=== PATIENT | male | born 1935 | race Caucasian/White ===

== ENCOUNTER 2017-03-31 02:30 | Day surgery (SDC) | payer MEDICARE, OTHER ==
[~2017-03-31 02:30] MED LIST: ASPI81CH PO; ATOR80 PO; BISA10S PR; CIPR500 PO; CLOP75; CLOP75 PO; CYAN1000I IM; CYCL10 PO; GLUCHON PO; LAVAP17G PO; MECL25 PO; METO10 PO; METO25ER PO; NITR.4SL SL; Nitrostat0.4 MG SL; TICA90TA PO; [UNRECOGNIZED DRUG - OTHER]; [UNRECOGNIZED DRUG - OTHER] PO
== END 2017-03-31 12:23 | disposition home or self-care (01) ==
LOC: RAD 02:30
PROVIDERS: Radiology Diagnostic Radiology
PROC: B01B1ZZ Fluoroscopy of Spinal Cord using Low Osmolar Contrast (ICD-10-PCS; principal; 2017-03-31 11:00)
DX: M50.11 Cervical disc disorder with radiculopathy, high cervical region (principal); M48.02 Spinal stenosis, cervical region; Z95.0 Presence of cardiac pacemaker
CPT/HCPCS: 62302; 72126; Q9966

== ENCOUNTER → 2017-05-03 | Outpatient (CLI) | payer MEDICARE, OTHER ==
[2017-05-04 14:20] LABS: Stool Occult Bld Immuno 1 Negative (NEGATIVE); Stool Occult Bld Immuno 2 Negative (NEGATIVE)
== END | disposition home or self-care (01) ==
LOC: LAB SHORT 14:09 → LAB 14:09
PROVIDERS: Internal Medicine Gastroenterology
DX: K59.00 Constipation, unspecified (principal); Z86.010 Personal history of colon polyps
CPT/HCPCS: G0328

== ENCOUNTER → 2017-08-31 | Outpatient (CLI) | payer MEDICARE, OTHER | END | disposition home or self-care (01) | LOC: LAB SHORT 12:44 → PLD 12:44 | DX: D48.5 Neoplasm of uncertain behavior of skin (principal) | CPT/HCPCS: 88305 ==

== ENCOUNTER → 2018-03-02 | Outpatient (CLI) | payer MEDICARE, OTHER | END | disposition home or self-care (01) | LOC: PLD 10:37 → LAB SHORT 10:37 | DX: D48.5 Neoplasm of uncertain behavior of skin (principal) | CPT/HCPCS: 88305 ==

== ENCOUNTER → 2018-06-30 | Outpatient (CLI) | payer MEDICARE, OTHER ==
[2018-06-30 11:12] LABS: BASOPHILS ABSOLUTE AUTO 0.02 K/mm3 (0.00-0.23); BASOPHILS PERCENT AUTO 0 % (0-2); EOSINOPHILS ABSOLUTE AUTO 0.06 K/mm3 (0.00-0.68); EOSINOPHILS PERCENT AUTO 1 % (0-6); Hematocrit 42.3 % (37.0-53.0); Hemoglobin 14.4 g/dL (13.5-17.5); IMMATURE GRAN ABSOLUTE AUTO 0.04 K/mm3 (0.00-0.10); IMMATURE GRAN PERCENT AUTO 1 % (0-1); LYMPHOCYTES ABSOLUTE AUTO 1.59 K/mm3 (0.84-5.20); LYMPHOCYTES PERCENT AUTO 19 % (21-46); MONOCYTES ABSOLUTE AUTO 0.48 K/mm3 (0.16-1.47); MONOCYTES PERCENT AUTO 6 % (4-13); Mean Corpuscular Volume 100 fL (80-100); Mean Platelet Volume 9.4 fL (9.1-12.4); NEUTROPHILS ABSOLUTE AUTO 6.05 K/mm3 (1.96-9.15); NEUTROPHILS PERCENT AUTO 74 % (41-73); Platelet Count 164 K/mm3 (150-400); RDW Coefficient Variation 12.5 % (11.7-14.2); RDW Standard Deviation 45.6 fL (35.1-46.3); Red Blood Cell Count 4.24 M/mm3 (4.30-5.90); White Blood Cell Count 8.24 K/mm3 (4.00-11.30)
[2018-06-30 11:22] LABS: Alanine Aminotransfer (ALT/SGP 14 U/L (12-78); Albumin, Blood 3.8 g/dL (3.4-5.0); Alk Phos 113 U/L (40-126); Anion Gap 5 mmol/L (6-16); Aspartate Aminotrans (AST/SGOT 27 U/L (12-37); Bilirubin, Total 0.8 mg/dL (0.1-1.0); Blood Urea Nitrogen 15 mg/dL (8-24); Bun/Creatinine Ratio 14.3 (12.0-20.0); CO2, Blood 31 mmol/L (21-32); Calcium, Blood 8.4 mg/dL (8.5-10.1); Chloride, Blood 101 mmol/L (98-108); Creatinine, Blood 1.05 mg/dL (0.60-1.20); Globulin, Blood 3.9 g/dL (2.2-4.0); Glomerular Filtration Rate >60 (60-); Glucose, Blood 131 mg/dL (70-99); Potassium, Blood 4.6 mmol/L (3.5-5.5); Sodium, Blood 137 mmol/L (136-145); Total Protein, Blood 7.7 g/dL (6.4-8.2)
== END | disposition home or self-care (01) ==
LOC: LAB EV 11:06 → LAB SHORT 11:06
PROVIDERS: Physician Assistant
DX: G20 Parkinson's disease (principal); R42 Dizziness and giddiness
CPT/HCPCS: 80053; 85025

== ENCOUNTER 2019-04-12 08:26 | Inpatient (IN) | payer MEDICARE, OTHER ==
[~2019-04-12] VITALS: Ht 180.3 cm; Wt 92.9 kg
[~2019-04-12 08:26] MED LIST changes: -ATOR80 PO; +ATORVASTATIN CA40 MG PO
[2019-04-12 09:14] LABS: BASOPHILS ABSOLUTE AUTO 0.02 K/mm3 (0.00-0.23); BASOPHILS PERCENT AUTO 0 % (0-2); EOSINOPHILS ABSOLUTE AUTO 0.01 K/mm3 (0.00-0.68); EOSINOPHILS PERCENT AUTO 0 % (0-6); Hematocrit 43.3 % (37.0-53.0); Hemoglobin 14.3 g/dL (13.5-17.5); IMMATURE GRAN ABSOLUTE AUTO 0.01 K/mm3 (0.00-0.10); IMMATURE GRAN PERCENT AUTO 0 % (0-1); LYMPHOCYTES ABSOLUTE AUTO 0.87 K/mm3 (0.84-5.20); LYMPHOCYTES PERCENT AUTO 17 % (21-46); MONOCYTES ABSOLUTE AUTO 0.59 K/mm3 (0.16-1.47); MONOCYTES PERCENT AUTO 11 % (4-13); Mean Corpuscular HGB 33.3 pg (26.0-34.0); Mean Corpuscular Volume 101 fL (80-100); Mean Platelet Volume 9.4 fL (9.1-12.4); NEUTROPHILS ABSOLUTE AUTO 3.78 K/mm3 (1.96-9.15); NEUTROPHILS PERCENT AUTO 72 % (41-73); Platelet Count 138 K/mm3 (150-400); RDW Coefficient Variation 12.4 % (11.7-14.2); RDW Standard Deviation 46.5 fL (35.1-46.3); White Blood Cell Count 5.28 K/mm3 (4.00-11.30)
[2019-04-12 09:39] LABS: Influenza A Negative (NEGATIVE); Influenza B Positive (NEGATIVE)
[2019-04-12 09:40] LABS: Alanine Aminotransfer (ALT/SGP 12 U/L (12-78); Albumin, Blood 3.5 g/dL (3.4-5.0); Albumin/Globulin Ratio 0.9 (0.8-1.8); Alk Phos 103 U/L (50-136); Anion Gap 8 mmol/L (6-16); Aspartate Aminotrans (AST/SGOT 65 U/L (12-37); Bilirubin, Total 0.5 mg/dL (0.1-1.0); Blood Urea Nitrogen 17 mg/dL (8-24); Bun/Creatinine Ratio 18.1 (12.0-20.0); CO2, Blood 25 mmol/L (21-32); Calcium, Blood 8.4 mg/dL (8.5-10.1); Chloride, Blood 105 mmol/L (98-108); Creatinine, Blood 0.94 mg/dL (0.60-1.20); Globulin, Blood 3.8 g/dL (2.2-4.0); Glomerular Filtration Rate >60 (60-); Glucose, Blood 115 mg/dL (70-99); Sodium, Blood 138 mmol/L (136-145); Total Protein, Blood 7.3 g/dL (6.4-8.2); Troponin I 0.047 ng/mL (0.000-0.040)
[2019-04-12 11:18] LABS: Source, Urine Clean Catch
[2019-04-12 11:29] LABS: Bilirubin, Urine Neg (Neg); Blood, Urine 1+ (Neg); Glucose Qualitative, Urine Neg (Neg); Ketones, Urine 2+ (Neg); Leukocyte Esterase, Urine Neg (Neg); Nitrite, Urine Neg (Neg); Protein, Urine 2+ (Neg); Urobilinogen, Urine NORM (Normal)
[2019-04-12 11:37] LABS: Appearance, Urine Clear (Clear); Color, Urine Yellow (P-Yellow)
[2019-04-12 11:38] LABS: White Blood Cells, Urine 0-2 /hpf (0-5)
[2019-04-12 11:41] LABS: Bacteria Few /hpf; Squamous Epithelial Cells Not Seen /hpf (Few)
[2019-04-12] MEDS ORDERED: Carbidopa-Levo1 EACH PO (12:40)
[2019-04-12] MEDS ORDERED: Sinemet 25-1001 EACH PO (12:41)
[2019-04-12] MEDS ORDERED: MELA3 PO (12:42)
[2019-04-13 05:14] LABS: BASOPHILS ABSOLUTE AUTO 0.01 K/mm3 (0.00-0.23); BASOPHILS PERCENT AUTO 0 % (0-2); EOSINOPHILS PERCENT AUTO 0 % (0-6); Hematocrit 43.3 % (37.0-53.0); Hemoglobin 14.7 g/dL (13.5-17.5); IMMATURE GRAN ABSOLUTE AUTO 0.02 K/mm3 (0.00-0.10); IMMATURE GRAN PERCENT AUTO 0 % (0-1); LYMPHOCYTES PERCENT AUTO 20 % (21-46); MONOCYTES ABSOLUTE AUTO 0.61 K/mm3 (0.16-1.47); MONOCYTES PERCENT AUTO 10 % (4-13); Mean Corpuscular HGB 33.7 pg (26.0-34.0); Mean Corpuscular HGB Conc 33.9 g/dL (31.5-36.5); Mean Corpuscular Volume 99 fL (80-100); Mean Platelet Volume 9.1 fL (9.1-12.4); NEUTROPHILS ABSOLUTE AUTO 4.08 K/mm3 (1.96-9.15); NEUTROPHILS PERCENT AUTO 69 % (41-73); Platelet Count 129 K/mm3 (150-400); RDW Coefficient Variation 12.3 % (11.7-14.2); RDW Standard Deviation 45.3 fL (35.1-46.3); Red Blood Cell Count 4.36 M/mm3 (4.30-5.90); White Blood Cell Count 5.92 K/mm3 (4.00-11.30)
--- NOTE | 2019-04-13 05:46 | NUR ---
SHIFT SUMMARY: VSS. TEMP 99.4, 99.0. PT WOKE UP CONFUSED DURING THE NIGHT. SPEAKING IN SENTENCES NOT APPLICABLE TO THE SITUATION. REORIENTED WELL. PT QUESTIONED WHERE HE IS ON SEVERAL OCC. BECAME CONFUSED ABOUT MOLECULAR GENETIC PATHOLOGIST ATTEMPTING TO DRAW BLOOD AND INSISTED HE SPEAK TO HIS FIRST. PT UNSURE OF THE REASON HE FELT HE NEEDED TO SPEAK TO HIS AND THEN BECAME FOCUSED ON SPEAKING TO HER RATHER THAN ANYTHING ABOUT THE BLOOD DRAW. UNABLE TO REACH , PT UNDERSTOOD AND AGREED TO WAIT TO CALL HER AGAIN. BLADDER SCAN AT 2300 SHOWED 226 CC'S. PT NOT STRAIGHT CATHED. PT VOIDED A LARGE INCONTINENT VOID IN BED AT AROUND 0130. NEXT DUE FOR BLADDER SCAN AT 0930. WILL COMMUNICATE THIS TO ONCOMING SHIFT. RHONCHI AUSCULTATED IN DAVID. ALL OTHER LOBES CLEAR. NASAL CONGESTION AUDIBLE WHEN PT SPEAKS. OCC HARSH SOUNDING, CONGESTED COUGH. ENCOURAGED COUGHING AND DEEP BREATHING. DENIES SOB. 02 SATS 90-96% DURING THE NIGHT. BED LOW, BED ALARM ON, CALL BUTTON IN REACH. WILL CONT TO MONITOR.
[2019-04-13 05:51] LABS: Anion Gap 7 mmol/L (6-16); Blood Urea Nitrogen 16 mg/dL (8-24); Bun/Creatinine Ratio 17.7 (12.0-20.0); CO2, Blood 24 mmol/L (21-32); Calcium, Blood 8.2 mg/dL (8.5-10.1); Chloride, Blood 105 mmol/L (98-108); Glomerular Filtration Rate >60 (60-); Glucose, Blood 111 mg/dL (70-99); Potassium, Blood 3.9 mmol/L (3.5-5.5); Sodium, Blood 136 mmol/L (136-145)
--- NOTE | 2019-04-13 14:24 | NUR ---
Upon receiving an admit referral for spiritual care, I visit patient. Patient is lying in bed and alert. Patient's spouse, Faustina is bedside. I conduct a brief life review and also learn about their family and yazidi background. Patient is does not have his hearing aid in so conversation involved some work but it was still meaningful and pleasant. I listen empathically and provide companionship and prayer. Patient and Fern respond well and thank me for the visit.
[2019-04-13 15:47] LABS: Source, Urine Catheter
[2019-04-13 15:50] LABS: Bilirubin, Urine Neg (Neg); Blood, Urine 1+ (Neg); Glucose Qualitative, Urine Neg (Neg); Ketones, Urine 1+ (Neg); Leukocyte Esterase, Urine Neg (Neg); Nitrite, Urine Neg (Neg); Protein, Urine 1+ (Neg); Urobilinogen, Urine NORM (Normal); pH, Urine 6.5 (5.0-8.0)
[2019-04-13 16:03] LABS: Appearance, Urine Clear (Clear); Color, Urine Yellow (P-Yellow)
[2019-04-13 16:04] LABS: Bacteria Few /hpf; Squamous Epithelial Cells Not Seen /hpf (Few); White Blood Cells, Urine 0-2 /hpf (0-5)
--- NOTE | 2019-04-13 18:24 | NUR ---
PATIENT CONTINUES TO BE CONFUSED THROUGHOUT THIS SHIFT. ORIENTED TO SELF AND FAMILY. DENIES ANY PAIN OR DISCOMFORT. BLADDER SCAN SHOWED 827 ML'S IN BLADDER AND ROA WAS PLACED. DR. TAVAREZ NOTIFIED AND SAID HE WOULD LOOK INTO A MEDICATION FOR URNARY RETENTION. SKIN INTACT. 20G IV TO L HAND WNL, NS AT 50ML/HR INFUSING. LUNGS CLEAR/DIM ON RA. OCCASIONAL HARSH CONGESTED COUGH. CONTACT/DROPLET PRECAUTIONS FOR FLU B+. FALL PRECAUTIONS IN PLACE. PATIENT MUCH MORE COMFORTABLE AND RESTFUL SINCE CATHETER PLACED.
--- NOTE | 2019-04-14 02:00 | NUR ---
CONFUSED AND PULLED PIV AND DNR BAND OFF. PATIENT NOT ORIENTED AT THIS TIME ASKING ABOUT HOUSES DOWN THE STREET. WILL CONTINUE TO MONITOR.
--- NOTE | 2019-04-14 03:12 | NUR ---
SHIFT SUMMARY PATIENT CONFUSED T/O SHIFT. HX PARKINSON. ASKING IF STAFF WERE [employer]IC[employer] AND LATER ASKED ABOUT WHAT HOUSES HE WOULD BE LOOKING AT. UNABLE TO REORIENT. PULLED OUT PIV AND DNR BAND OFF. ROA PATENT AND DRAINING. VSS/AFEBRILE. DENIES PAIN, SOB, AND N/V. HEAVY TWO PERSON ASSIST WITH GAIT BELT AND FWW TO BSC. DROPLET PRECAUTIONS. BED IN LOWEST POSITION. CALL LIGHT IN REACH. WILL CONTINUE TO MONITOR UNTIL DAY SHIFT NURSE ASSUMES CARE.
--- NOTE | 2019-04-14 06:53 | NUR ---
VISUAL HALLUCINATIONS: SEEING FISH ON THE WALL X ONE.
--- NOTE | 2019-04-14 18:02 | NUR ---
PT CONTINUES TO REMAINED CONFUSED. HIS AND SON ARE PRESENT AND ARE WANTING TO TALK WITH DISCHARGE PLANNING TO DISCUSS TAKING THE PT HOME AND THE CARE REQUIRED. NO ACUTE CHANGES THIS SHIFT.
--- NOTE | 2019-04-15 05:44 | NUR ---
SHIFT SUMMARY ALERT, YET CONFUSED/DISORIENTED. DIFFICULT TO ORIENT. MEDS GIVEN IN APPLESAUCE; TOLERATED WELL. NO ACUTE CHANGES NOTED OVERNIGHT. VSS/AFEBRILE. REMAINS HYPERTENSIVE; HOWEVER, ON TREND WITH PREVIOUS PRESSURES. BED REMAINS IN LOWEST POSITION; ALARM ON. CALL LIGHT WITHIN REACH. WCTM. REPORT TO ONCOMING RN.
[2019-04-15 05:45] LABS: Anion Gap 5 mmol/L (6-16); Blood Urea Nitrogen 17 mg/dL (8-24); Bun/Creatinine Ratio 19.5 (12.0-20.0); CO2, Blood 26 mmol/L (21-32); Calcium, Blood 8.1 mg/dL (8.5-10.1); Chloride, Blood 108 mmol/L (98-108); Creatinine, Blood 0.87 mg/dL (0.60-1.20); Glomerular Filtration Rate >60 (60-); Glucose, Blood 104 mg/dL (70-99); Potassium, Blood 3.6 mmol/L (3.5-5.5); Sodium, Blood 139 mmol/L (136-145)
--- NOTE | 2019-04-15 18:34 | NUR ---
No acute issues noted. No current complaints of pain or discomfort noted. Patient was up to the chair for most of the day and worked with PT. Reed removed, patient has not voided yet but reports not being ready to yet. No other issues noted at this time. Will continue to monitor for changes.
--- NOTE | 2019-04-16 00:53 | NUR ---
PATIENT RESTING ON ROOM AIR. DENIES PAIN, SOB, AND N/V. MENTATION IMPROVED FROM LAST NOC SHIFT.
--- NOTE | 2019-04-16 03:09 | NUR ---
SHIFT SUMMARY PATIENT HAD NO ACUTE CHANGES OBSERVED. AXOX 2 WITH HX OF PARKINSONS. PATIENT ABLE TO COMMUNICATE HIS NEEDS THIS SHIFT WITH LESS CONFUSION. ONE ASSIST TO BSC VOIDING NEEDING A FWW AND GAIT BELT. TAKES MEDICATION WHOLE WITH APPLE SAUCE. TWO BED EXIT ALARMS SWINGING LEGS TO SIDE OF BED NEEDING TO USE BSC. DROPLET PRECAUTIONS. DENIES PAIN, SOB, AND N/V. VSS/AFEBRILE. COOPERATIVE WITH CARE. CALL LIGHT IN REACH. BED IN LOWEST POSITION. WILL CONTINUE TO MONITOR UNTIL DAY SHIFT NURSE ASSUMES CARE.
[2019-04-16 05:46] LABS: Anion Gap 8 mmol/L (6-16); Blood Urea Nitrogen 17 mg/dL (8-24); Bun/Creatinine Ratio 19.7 (12.0-20.0); CO2, Blood 23 mmol/L (21-32); Calcium, Blood 8.2 mg/dL (8.5-10.1); Chloride, Blood 108 mmol/L (98-108); Creatinine, Blood 0.86 mg/dL (0.60-1.20); Glomerular Filtration Rate >60 (60-); Glucose, Blood 118 mg/dL (70-99); Potassium, Blood 3.9 mmol/L (3.5-5.5); Sodium, Blood 139 mmol/L (136-145)
--- NOTE | 2019-04-16 18:44 | NUR ---
SHIFT SUMMARY- PT IS ALERT WITH INTERMITENT CONFUSION. HE IS PLESANT AND COOPERATIVE. HE IS AMBULATING WITH ASSISTANCE TO THE RESTROOM. PREFORMED POST VOID BLADDER SCAN WITH A VOLUME OF 155. PT EATING AND DRINKING WELL. PT RECIEVING IV ANTIBIOTICS. HE IS EATING AND DRINKING WELL.
--- NOTE | 2019-04-17 04:59 | NUR ---
04/17/19 0310 PT DISORIENTED TO SURROUNDINGS AND ATTEMPTING TO GET OUT OF BED. BED ALARM SOUNDING. RN RE-ORIENTED PT TO EVENTS/SURROUNGINGS. PT INCONTINENT OF URINE IN BRIEF AND WAS CHANGED WITH SHANNAN-CARE GIVEN. TAKING WATER WELL. REPOSITIONED TO LEFT SIDE.
--- NOTE | 2019-04-17 05:03 | NUR ---
04/17/19 0500 PT MORE CONFUSED THROUGHOUT NIGHT COMPARED TO BEGINNING OF SHIFT. BP WAS ELEVATED DURING ONE OF THE CONFUSION EVENTS. DENIES ANY PAIN OR S/S. INCONTINENT OF URINE THREE TIMES PLUS ONE VOIDING IN URINAL. BED ALARM ON.
[2019-04-17 05:44] LABS: BASOPHILS ABSOLUTE AUTO 0.01 K/mm3 (0.00-0.23); BASOPHILS PERCENT AUTO 0 % (0-2); EOSINOPHILS ABSOLUTE AUTO 0.06 K/mm3 (0.00-0.68); EOSINOPHILS PERCENT AUTO 1 % (0-6); Hematocrit 41.3 % (37.0-53.0); Hemoglobin 14.1 g/dL (13.5-17.5); IMMATURE GRAN ABSOLUTE AUTO 0.03 K/mm3 (0.00-0.10); IMMATURE GRAN PERCENT AUTO 1 % (0-1); LYMPHOCYTES ABSOLUTE AUTO 1.63 K/mm3 (0.84-5.20); LYMPHOCYTES PERCENT AUTO 25 % (21-46); MONOCYTES ABSOLUTE AUTO 0.57 K/mm3 (0.16-1.47); MONOCYTES PERCENT AUTO 9 % (4-13); Mean Corpuscular HGB 33.3 pg (26.0-34.0); Mean Corpuscular HGB Conc 34.1 g/dL (31.5-36.5); Mean Corpuscular Volume 97 fL (80-100); Mean Platelet Volume 9.5 fL (9.1-12.4); NEUTROPHILS ABSOLUTE AUTO 4.35 K/mm3 (1.96-9.15); NEUTROPHILS PERCENT AUTO 65 % (41-73); Platelet Count 149 K/mm3 (150-400); RDW Coefficient Variation 11.9 % (11.7-14.2); Red Blood Cell Count 4.24 M/mm3 (4.30-5.90); White Blood Cell Count 6.65 K/mm3 (4.00-11.30)
[2019-04-17 06:11] LABS: Anion Gap 7 mmol/L (6-16); Blood Urea Nitrogen 13 mg/dL (8-24); Bun/Creatinine Ratio 16.5 (12.0-20.0); CO2, Blood 25 mmol/L (21-32); Calcium, Blood 8.4 mg/dL (8.5-10.1); Chloride, Blood 107 mmol/L (98-108); Creatinine, Blood 0.79 mg/dL (0.60-1.20); Glomerular Filtration Rate >60 (60-); Glucose, Blood 114 mg/dL (70-99); Potassium, Blood 3.8 mmol/L (3.5-5.5); Sodium, Blood 139 mmol/L (136-145)
--- NOTE | 2019-04-17 18:45 | NUR ---
SHIFT SUMMARY- PT IS PLESANT AND COOPERATIVE. HAS SOME INTERMITENT CONFUSION. HE HAS URGENCY TO VOID. AT BEDSIDE MOST OF THIS SHIFT. PLAN FOR DISCHARGE TOMORROW.
--- NOTE | 2019-04-18 01:03 | NUR ---
BEGINNING SHIFT SUMMARY ASSUMED CARE OF PT AT 1900. PT IS ALERT AND ORIENTED TO SELF, EXCEPT HIS BDAY, AND HIS . PT REFUSED ORAL MEDICATION BECAUSE HE STATED THAT HE WAS ANGRY THAT HE WAS BEING HELD HERE, CALLED AND CALMED PT DOWN. PT CONTINUED TO GET OUT OF BED WITHOUT CALLING. LUNG SOUNDS DIMINISHED HEART SOUNDS REGULAR, DENIES CP/SOB AT THIS TIME. PT IS INCONTINENT OF BLADDER. CALL LIGHT IN REACH, BED IN LOWEST POSTION, BED ALARM ON, WILL CONTINUE TO MONITOR.
--- NOTE | 2019-04-18 04:54 | NUR ---
END SHIFT SUMMARY NO ACTUE CHANGES NOTED T/O THE NIGHT. PT CONTINUES TO NOT USE THE CALL LIGHT INAPPROPIATELY AND ATTEMPTS TO GET OUT OF BED. PT IS MORE COMPLIANT WITH CARE AFTER HIS TALKED TO HIM. PT IS STILL CONFUSED AND ASKS WHERE HIS FAMILY IS. CALL LIGHT IN REACH, BED IN LOWEST POSTION, BED ALARM ON, WILL CONTINUE TO MONITOR UNTIL DAYSHIFT NURSE ARRIVES.
[2019-04-18 05:50] LABS: BASOPHILS ABSOLUTE AUTO 0.01 K/mm3 (0.00-0.23); BASOPHILS PERCENT AUTO 0 % (0-2); EOSINOPHILS ABSOLUTE AUTO 0.08 K/mm3 (0.00-0.68); EOSINOPHILS PERCENT AUTO 1 % (0-6); Hematocrit 40.6 % (37.0-53.0); Hemoglobin 13.9 g/dL (13.5-17.5); IMMATURE GRAN ABSOLUTE AUTO 0.05 K/mm3 (0.00-0.10); IMMATURE GRAN PERCENT AUTO 1 % (0-1); LYMPHOCYTES ABSOLUTE AUTO 1.64 K/mm3 (0.84-5.20); LYMPHOCYTES PERCENT AUTO 24 % (21-46); MONOCYTES PERCENT AUTO 9 % (4-13); Mean Corpuscular HGB 33.3 pg (26.0-34.0); Mean Corpuscular HGB Conc 34.2 g/dL (31.5-36.5); Mean Corpuscular Volume 97 fL (80-100); Mean Platelet Volume 9.7 fL (9.1-12.4); NEUTROPHILS ABSOLUTE AUTO 4.39 K/mm3 (1.96-9.15); NEUTROPHILS PERCENT AUTO 65 % (41-73); Platelet Count 175 K/mm3 (150-400); RDW Standard Deviation 43.2 fL (35.1-46.3); Red Blood Cell Count 4.18 M/mm3 (4.30-5.90); White Blood Cell Count 6.77 K/mm3 (4.00-11.30)
[2019-04-18 06:14] LABS: Anion Gap 9 mmol/L (6-16); Blood Urea Nitrogen 13 mg/dL (8-24); Bun/Creatinine Ratio 17.2 (12.0-20.0); CO2, Blood 23 mmol/L (21-32); Calcium, Blood 8.7 mg/dL (8.5-10.1); Chloride, Blood 107 mmol/L (98-108); Creatinine, Blood 0.76 mg/dL (0.60-1.20); Glomerular Filtration Rate >60 (60-); Glucose, Blood 110 mg/dL (70-99); Potassium, Blood 4.1 mmol/L (3.5-5.5); Sodium, Blood 139 mmol/L (136-145)
[2019-04-18] MEDS ORDERED: Augmentin 875-1 EACH PO (16:01)
[2019-04-18] MEDS ORDERED: OSEL75CA PO (16:01)
[2019-04-18] MEDS ORDERED: AZIT250 PO (16:02)
[2019-04-18] MEDS ORDERED: TAMS.4ER PO (16:03)
--- NOTE | 2019-04-18 18:15 | NUR ---
DISCHARGE PT AND SPOUSE PROVIDED WITH WRITTEN AND VERBAL DISCHARGE INSTRUCTIONS, THEY REPORTED UNDERSTANDING. SCRIPTS FAXED TO PT'S PHARMACY. TRANSPORT ARRANED AND PT LEFT WITH TRANSPORT AT APPROXIMATELY 1722.
== END 2019-04-18 17:22 | disposition home health service (06) | DRG 193 ==
LOC: ER 08:26 → MEDS 10:58 → ENPENDDIS 04-16 15:57 → MEDS 04-18 17:22
PROVIDERS: Emergency Medicine; Family Medicine; Internal Medicine Endocrinology, Diabetes & Metabolism; ADMIT Internal Medicine
DX: J10.00 Influenza due to other identified influenza virus with unspecified type of pneumonia (principal); G92 Toxic encephalopathy; F03.90 Unspecified dementia, unspecified severity, without behavioral disturbance, psychotic disturbance, mood disturbance, and anxiety; C61 Malignant neoplasm of prostate; G20 Parkinson's disease; I25.10 Atherosclerotic heart disease of native coronary artery without angina pectoris; N40.1 Benign prostatic hyperplasia with lower urinary tract symptoms; Z95.0 Presence of cardiac pacemaker; Z95.5 Presence of coronary angioplasty implant and graft; R33.8 Other retention of urine; R39.14 Feeling of incomplete bladder emptying; J10.81 Influenza due to other identified influenza virus with encephalopathy
CPT/HCPCS: 36415; 71046; 80048; 80053; 81001; 83880; 84484; 85025; 87804; 93005; 93010; 96361; 96365; 97110; 97116; 97162; 97530; 99285-25; J0456; J0696; J1650; J7030; J7050

== ENCOUNTER → 2019-07-13 | Outpatient (CLI) | payer MEDICARE, OTHER ==
[~2019-07-13] MED LIST changes: +AZIT250 PO; +Augmentin 875-1 EACH PO; +Carbidopa-Levo1 EACH PO; +MELA3 PO; +OSEL75CA PO; +Sinemet 25-1001 EACH PO; +TAMS.4ER PO
== END | disposition home or self-care (01) ==
LOC: LAB SHORT 09:30 → LAB EV 09:30
DX: F44.89 Other dissociative and conversion disorders (principal); R33.9 Retention of urine, unspecified
CPT/HCPCS: 87086

== ENCOUNTER → 2019-07-20 | Outpatient (CLI) | payer MEDICARE, OTHER ==
[2019-07-20 10:37] LABS: BASOPHILS ABSOLUTE AUTO 0.03 K/mm3 (0.00-0.23); BASOPHILS PERCENT AUTO 0 % (0-2); EOSINOPHILS ABSOLUTE AUTO 0.12 K/mm3 (0.00-0.68); EOSINOPHILS PERCENT AUTO 1 % (0-6); Hematocrit 38.4 % (37.0-53.0); Hemoglobin 13.1 g/dL (13.5-17.5); IMMATURE GRAN ABSOLUTE AUTO 0.06 K/mm3 (0.00-0.10); IMMATURE GRAN PERCENT AUTO 1 % (0-1); LYMPHOCYTES ABSOLUTE AUTO 1.22 K/mm3 (0.84-5.20); LYMPHOCYTES PERCENT AUTO 12 % (21-46); MONOCYTES ABSOLUTE AUTO 0.49 K/mm3 (0.16-1.47); MONOCYTES PERCENT AUTO 5 % (4-13); Mean Corpuscular HGB Conc 34.1 g/dL (31.5-36.5); Mean Corpuscular Volume 100 fL (80-100); Mean Platelet Volume 9.4 fL (9.1-12.4); NEUTROPHILS ABSOLUTE AUTO 8.05 K/mm3 (1.96-9.15); NEUTROPHILS PERCENT AUTO 81 % (41-73); Platelet Count 162 K/mm3 (150-400); RDW Coefficient Variation 12.2 % (11.7-14.2); RDW Standard Deviation 44.5 fL (35.1-46.3); Red Blood Cell Count 3.85 M/mm3 (4.30-5.90); White Blood Cell Count 9.97 K/mm3 (4.00-11.30)
[2019-07-20 10:51] LABS: Albumin, Blood 3.6 g/dL (3.4-5.0); Bilirubin, Total 0.5 mg/dL (0.1-1.0); Bun/Creatinine Ratio 7.4 (12.0-20.0); Calcium, Blood 8.2 mg/dL (8.5-10.1); Creatinine, Blood 4.18 mg/dL (0.60-1.20); Globulin, Blood 3.7 g/dL (2.2-4.0); Potassium, Blood 4.9 mmol/L (3.5-5.5); Total Protein, Blood 7.3 g/dL (6.4-8.2)
== END | disposition home or self-care (01) ==
LOC: LAB SHORT 08:42 → LAB EV 08:42
PROVIDERS: Physician Assistant
DX: R33.9 Retention of urine, unspecified (principal); R10.9 Unspecified abdominal pain
CPT/HCPCS: 80053; 85025; 87086

== ENCOUNTER 2019-09-05 12:59 | Day surgery (SDC) | payer MEDICARE, OTHER ==
[~2019-09-05] VITALS: Ht 180.3 cm; Wt 85.5 kg
--- NOTE | 2019-09-05 16:42 | NUR ---
09/05/19 1642 Bri Burrows 2.5ML INDIGO CARMINE MIXED INTO 14ML NACL FOR POLYP REMOVAL.
== END 2019-09-06 17:28 | disposition home or self-care (01) ==
LOC: ORSCSDS 12:59
PROVIDERS: Internal Medicine Gastroenterology
PROC: 0DBK8ZX Excision of Ascending Colon, Via Natural or Artificial Opening Endoscopic, Diagnostic (ICD-10-PCS; principal; 2019-09-05 14:30)
PROC: 0DBL8ZX Excision of Transverse Colon, Via Natural or Artificial Opening Endoscopic, Diagnostic (ICD-10-PCS; principal; 2019-09-05 14:30)
DX: R10.84 Generalized abdominal pain (principal); K59.00 Constipation, unspecified; Z86.010 Personal history of colon polyps; D12.2 Benign neoplasm of ascending colon; D12.3 Benign neoplasm of transverse colon; Z95.0 Presence of cardiac pacemaker; R91.8 Other nonspecific abnormal finding of lung field; Z79.82 Long term (current) use of aspirin; Z79.899 Other long term (current) drug therapy
CPT/HCPCS: 82947; 88305; J2704; J7120

== ENCOUNTER 2019-09-17 04:59 | Emergency (ER) | payer MEDICARE, OTHER ==
[~2019-09-17] VITALS: Ht 180.3 cm; Wt 87.1 kg
[2019-09-17] MEDS ORDERED: ASPIR 8181 M1 PO (05:36)
[2019-09-17 06:39] LABS: Source, Urine Catheter
[2019-09-17 06:50] LABS: Bilirubin, Urine Neg (Neg); Blood, Urine 2+ (Neg); Glucose Qualitative, Urine Neg (Neg); Ketones, Urine Neg (Neg); Leukocyte Esterase, Urine 2+ (Neg); Nitrite, Urine Pos (Neg); Protein, Urine 1+ (Neg); Specific Gravity, Urine 1.015 (1.003-1.022); Urobilinogen, Urine NORM (Normal)
[2019-09-17 07:14] LABS: Appearance, Urine Hazy (Clear); Bacteria Mod /hpf; Color, Urine Pale Yellow (P-Yellow); Squamous Epithelial Cells Not Seen /hpf (Few)
== END 2019-09-17 07:40 | disposition home or self-care (01) ==
LOC: ER 04:59
PROVIDERS: Emergency Medicine
DX: T83.098A Other mechanical complication of other urinary catheter, initial encounter (principal); R33.9 Retention of urine, unspecified; Z88.5 Allergy status to narcotic agent; G20 Parkinson's disease; I25.10 Atherosclerotic heart disease of native coronary artery without angina pectoris; Z79.82 Long term (current) use of aspirin; Z79.899 Other long term (current) drug therapy
CPT/HCPCS: 51702; 51798; 81001; 87077; 87086; 87186; 99283-25

== ENCOUNTER → 2020-01-31 | Outpatient (CLI) | payer MEDICARE, OTHER ==
[~2020-01-31] MED LIST changes: +ASPIR 8181 M1 PO
[2020-01-31 10:19] LABS: Source, Urine Clean Catch
[2020-01-31 13:18] LABS: Appearance, Urine Hazy (Clear); Bilirubin, Urine Neg (Neg); Blood, Urine 2+ (Neg); Color, Urine Amber (P-Yellow); Glucose Qualitative, Urine Neg (Neg); Ketones, Urine 1+ (Neg); Leukocyte Esterase, Urine 3+ (Neg); Nitrite, Urine Pos (Neg); Protein, Urine 2+ (Neg); Urobilinogen, Urine NORM (Normal)
[2020-01-31 13:27] LABS: Bacteria Few /hpf; Squamous Epithelial Cells Rare /hpf (Few)
== END | disposition home or self-care (01) ==
LOC: LAB SHORT 09:07 → LAB 09:07
PROVIDERS: Nurse Practitioner Family
DX: N39.0 Urinary tract infection, site not specified (principal)
CPT/HCPCS: 81001; 87077; 87086; 87186

== ENCOUNTER 2020-02-08 22:24 | Emergency (ER) | payer MEDICARE, OTHER ==
[~2020-02-08] VITALS: Ht 180.3 cm; Wt 81.7 kg
== END 2020-02-09 00:17 | disposition home or self-care (01) ==
LOC: ER 22:24
DX: T83.198A Other mechanical complication of other urinary devices and implants, initial encounter (principal); G20 Parkinson's disease; F02.80 Dementia in other diseases classified elsewhere, unspecified severity, without behavioral disturbance, psychotic disturbance, mood disturbance, and anxiety; Z88.5 Allergy status to narcotic agent; Z79.82 Long term (current) use of aspirin; Z79.899 Other long term (current) drug therapy; Z79.02 Long term (current) use of antithrombotics/antiplatelets; Z95.0 Presence of cardiac pacemaker
CPT/HCPCS: 51102; 99282-25